=== PATIENT | male | born 1970 | race Caucasian/White ===

== ENCOUNTER 2020-08-24 08:31 | Emergency (ER) | payer MEDICAID ==
[~2020-08-24] VITALS: Ht 162.6 cm; Wt 83.5 kg
[2020-08-24 08:47] VITALS: BP 155/94
[2020-08-24] MEDS ORDERED: KETOROLAC 30 MG/ML VIAL IM ONE (09:00)
[2020-08-24] MEDS ORDERED: HYDROcodone/APAP 5/325 MG 1 TAB TAB PO ONE (09:15)
--- NOTE | 2020-08-24 09:57 | NUR ---
AFTER APPLICATION OF THE ORTHOGLASS POSTERIOR SHORT LEG SPLINT ON THE RIGHT LEG, ATTEMPTED TO GIVE PATIENT CRUTCHES. PATIENT DENIES CRUTCHES STATING HE HAS SOME AT HOME. PROPER CRUTCH USE STILL DEMONSTRATED TO PATIENT USING HOSPITAL CRUTCHES.
[2020-08-24 10:23] VITALS: BP 155/94
--- NOTE | 2020-08-24 10:23 | NUR ---
Patient discharged with v/s stable. Written and verbal after care instructions given and explained. Patient alert, oriented and verbalized understanding of instructions. Ambulatory with steady gait. All questions addressed prior to discharge. ID band removed. Patient advised to follow up with PMD. Rx of [place] 5mg-325mg given. Patient educated on indication of medication including possible reaction and side effects. Opportunity to ask questions provided and answered.
--- NOTE | 2020-08-24 10:23 | NUR ---
PT C/O RIGHT ANKLE PAIN WITH SWELLING S/P FALL 2 DAYS AGO. NO BRUISING OR DEFORMITY NOTICED. PT IS NOT ABLE TO BEAR WEIGHT ON THE RIGHT ANKLE.
== END 2020-08-24 10:23 | disposition home or self-care (01) ==
LOC: MED 08:31
DX: S82.51XA Displaced fracture of medial malleolus of right tibia, initial encounter for closed fracture (principal); S82.891A Other fracture of right lower leg, initial encounter for closed fracture; W01.0XXA Fall on same level from slipping, tripping and stumbling without subsequent striking against object, initial encounter; Y93.89 Activity, other specified; Y92.89 Other specified places as the place of occurrence of the external cause; Y99.8 Other external cause status
CPT/HCPCS: 29515; 73610; 99283